=== PATIENT | male | born 2000 | race Caucasian/White ===

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

== ENCOUNTER 2022-12-24 10:11 | Emergency (ER) | payer OTHER ==
[~2022-12-24] VITALS: Ht 180.3 cm; Wt 81.8 kg
[2022-12-24 10:19] VITALS: BP 149/65; PULSE 82; RESP 18; TEMP 97.9
[2022-12-24] MEDS ORDERED: AMOX250C4 PO (12:44)
== END 2022-12-24 12:55 | disposition home or self-care (01) ==
LOC: EMS 10:11
DX: L03.031 Cellulitis of right toe (principal); E11.9 Type 2 diabetes mellitus without complications; I10 Essential (primary) hypertension
CPT/HCPCS: 99283; Z7502

== ENCOUNTER 2023-09-01 19:16 | Emergency (ER) | payer MEDICAID, OTHER ==
[~2023-09-01] VITALS: Ht 167.6 cm; Wt 90.9 kg
[~2023-09-01 19:16] MED LIST: AMOX250C4 PO
[2023-09-01 21:25] LABS: BASOPHILS % (AUTO) 0.7 % (0.0-2.0); EOSINOPHILS % (AUTO) 2.7 % (1.0-6.0); HEMATOCRIT 40.7 % (41-53); HEMOGLOBIN 13.7 g/dL (13.5-17.5); LYMPHOCYTES # (AUTO) 2.7 K/uL (1.0-4.8); MEAN CORPUSCULAR HEMOGLOBIN 31.1 pg (26.0-34.0); MEAN CORPUSCULAR HGB CONC 33.8 G/dL (31.0-37.0); MEAN CORPUSCULAR VOLUME 92 fL (80-100); MONOCYTES # (AUTO) 0.7 K/uL (0.1-1.0); MONOCYTES % (AUTO) 8.2 % (2.0-9.0); NEUTROPHILS # (AUTO) 4.9 K/uL (1.8-7.7); NEUTROPHILS % (AUTO) 57.4 % (40.0-70.0); PLATELET COUNT (AUTO) 303 K/uL (150-450); RED BLOOD CELL COUNT(AUTO) 4.42 MIL/uL (4.50-5.90); RED CELL DISTRIBUTION WIDTH 13.8 % (11.5-14.5); WHITE BLOOD COUNT (AUTO) 8.6 K/uL (4.5-11.0)
[2023-09-01 21:33] LABS: ANION GAP 9 mmol/L (8-16); CALCIUM, TOTAL 9.7 mg/dL (8.8-10.5); CARBON DIOXIDE 28 mmol/L (22-29); CHLORIDE 103 mmol/L (98-107); CREATININE 0.88 mg/dL (0.60-1.30); GLOMERULAR FILTR. RATE CALC > 60 mL/min (>60); GLUCOSE,RANDOM 103 mg/dL (70-110); POTASSIUM 3.9 mmol/L (3.5-5.1); SODIUM SERUM 140 mmol/L (136-145); UREA NITROGEN, BLOOD 15 mg/dL (7-18)
[2023-09-01 22:53] LABS: ALBUMIN 4.1 g/dL (3.4-5.0); BILIRUBIN,DIRECT 0.1 mg/dL (0.00-0.20); BILIRUBIN,TOTAL 0.5 mg/dL (0.1-1.0); TOTAL PROTEIN, SERUM 8.3 g/dL (6.4-8.2)
[2023-09-02] MEDS: FAMOTIDINE 20 MG TABLET PO ONE (00:12)
[2023-09-02] MEDS: MAG HYDROX/ALUMINUM HYD/SIMETH 30 ML SUSPENSION UDCUP PO ONE (00:12)
[2023-09-02] MEDS: LIDOCAINE/PF 1% 2 ML VIAL IM ONE (00:12)
[2023-09-02] MEDS: CefTRIAXone SODIUM 1 GM/VIAL IM ONE (00:12)
[2023-09-02] MEDS: DOXYCYCLINE HYCLATE 100 MG TABLET PO ONE (00:13)
[2023-09-02] MEDS: ACETAMINOPHEN 500 MG TABLET PO ONE (00:13)
[2023-09-02 00:35] VITALS: BP 148/78; PULSE 72; RESP 16; TEMP 98.3
[2023-09-02] MEDS ORDERED: RALT400T PO (00:54)
[2023-09-02] MEDS ORDERED: DOXY-354 PO (00:54)
[2023-09-02] MEDS ORDERED: ONDA-104 PO (00:54)
[2023-09-02] MEDS ORDERED: EMTR1TAB53 PO (00:54)
[2023-09-02] MEDS: RALTEGRAVIR 400 MG TABLET PO ONE (01:35)
[2023-09-02] MEDS: EMTRICITABINE/TENOFOVIR 200-300 MG TABLET PO ONE (01:35)
[2023-09-02 02:00] LABS: APPEARANCE,URINE CLEAR (CLEAR); BILIRUBIN,URINE NEGATIVE (NEGATIVE); COLOR,URINE YELLOW (YELLOW); GLUCOSE, URINE (UA) NEGATIVE (NEGATIVE); KETONES,URINE TRACE mg/dL (NEGATIVE); LEUKOCYTE ESTERASE ,URINE NEGATIVE (NEGATIVE); NITRATE,URINE NEGATIVE (NEGATIVE); OCCULT BLOOD,URINE NEGATIVE (NEGATIVE); PROTEIN,URINE TRACE mg/dL (NEGATIVE); SPECIFIC GRAVITIY, URINE 1.034 (1.003-1.030); UROBILINOGEN,URINE <=1.0 mg/dL (<=1.0)
[2023-09-05 03:07] LABS: HIV 1-2 SCREEN 4TH GEN W/RFLX Non Reactive (Non Reactive)
== END 2023-09-02 02:53 | disposition home or self-care (01) ==
LOC: EMS 19:21
DX: A64 Unspecified sexually transmitted disease (principal); F17.210 Nicotine dependence, cigarettes, uncomplicated; I10 Essential (primary) hypertension; F12.90 Cannabis use, unspecified, uncomplicated; N50.812 Left testicular pain
CPT/HCPCS: 99285; 86592; 80048; 80076; 81003; 85025; 36415; 76870; 87491; 87591; 87389; 96372; J0696; J3490